=== PATIENT | male | born 1940 | race Caucasian/White ===

== ENCOUNTER → 2016-09-06 | Outpatient (CLI) | payer MEDICARE ==
[2016-09-06 12:39] LABS: BLOOD, URINE NEG (NEG); GLUCOSE,URINE NEG (NEG); HYALINE CAST, URINE 1 /lpf (RARE); KETONE, URINE NEG (NEG); MUCUS URINE FEW /lpf (OCC); NITRITE,URINE NEG (NEG); URINE COLOR YELLOW (YELLW/STRAW)
[2016-09-06 12:43] LABS: COMMENT (UR) CULT NOT INDICATED; CULTURE IF INDICATED CULT NOT INDICATED
[2016-09-06 12:46] LABS: AUTOMATED NEUTROPHIL # 5.7 TH/MM3 (1.8-7.7); BASOPHIL # 0.1 TH/MM3 (0-0.2); BASOPHIL % 1.2 % (0.0-2.0); EOSINOPHIL # 0.5 TH/MM3 (0-0.4); HEMATOCRIT 35.1 % (39.0-51.0); HEMO FLAGS DIFF FINAL; LYMPH % 15.9 % (9.0-44.0); LYMPHOCYTE # 1.3 TH/MM3 (1.0-4.8); MEAN CELL VOLUME 91.9 FL (80.0-100.0); MEAN CORPUSCULAR HEMOGLOBIN 31.4 PG (27.0-34.0); MEAN CORPUSCULAR HGB CONC 34.2 % (32.0-36.0); MONO % 8.2 % (0.0-8.0); NEUT % 68.7 % (16.0-70.0); PLATELET COUNT 282 TH/MM3 (150-450); RED BLOOD COUNT 3.82 MIL/MM3 (4.50-5.90); RED CELL DISTRIBUTION WIDTH 12.8 % (11.6-17.2); WHITE BLOOD COUNT 8.3 TH/MM3 (4.0-11.0)
[2016-09-06 13:08] LABS: ALT (GPT) 19 U/L (12-78); ANION GAP 10 MEQ/L (5-15); AST (GOT) 10 U/L (15-37); BICARBONATE 24.2 MEQ/L (21.0-32.0); BLOOD UREA NITROGEN 17 MG/DL (7-18); CHLORIDE 105 MEQ/L (98-107); GLUCOSE,FASTING 106 MG/DL (74-99); POTASSIUM 4.5 MEQ/L (3.5-5.1); SODIUM (NA) 139 MEQ/L (136-145)
[2016-09-06 13:34] LABS: ALKALINE PHOSPHATASE 75 U/L (45-117); GLOMERULAR FILTRATION RATE 30 ML/MIN (>89); HDL CHOLESTEROL 43.7 MG/DL (40.0-60.0); LDL CHOLESTEROL 26 MG/DL (0-99); TOTAL BILIRUBIN ADULT 0.3 MG/DL (0.2-1.0)
[2016-09-06 13:45] LABS: CREATINE KINASE 56 U/L (39-308)
== END ==
LOC: ELAB 11:12
PROVIDERS: ATTEND Internal Medicine Nephrology
DX: E78.5 Hyperlipidemia, unspecified (principal); N18.3 Chronic kidney disease, stage 3 (moderate); N25.81 Secondary hyperparathyroidism of renal origin
CPT/HCPCS: 36415; 80053; 80061; 81001; 82306; 82550; 82570; 82607; 83970; 84156; 84443; 85025

== ENCOUNTER → 2016-09-14 | Outpatient (CLI) | payer MEDICARE ==
[2016-09-14 12:56] LABS: AUTOMATED NEUTROPHIL # 5.6 TH/MM3 (1.8-7.7); BASOPHIL # 0.1 TH/MM3 (0-0.2); EOSINOPHIL # 0.4 TH/MM3 (0-0.4); EOSINOPHIL % 4.9 % (0.0-4.0); HEMO FLAGS DIFF FINAL; LYMPH % 15.9 % (9.0-44.0); LYMPHOCYTE # 1.3 TH/MM3 (1.0-4.8); MEAN CELL VOLUME 91.9 FL (80.0-100.0); MEAN CORPUSCULAR HEMOGLOBIN 31.1 PG (27.0-34.0); MEAN CORPUSCULAR HGB CONC 33.9 % (32.0-36.0); MONO % 8.8 % (0.0-8.0); NEUT % 69.4 % (16.0-70.0); PLATELET COUNT 312 TH/MM3 (150-450); RED BLOOD COUNT 3.81 MIL/MM3 (4.50-5.90); RED CELL DISTRIBUTION WIDTH 12.8 % (11.6-17.2); WHITE BLOOD COUNT 8.1 TH/MM3 (4.0-11.0)
[2016-09-14 13:51] LABS: FERRITIN 39 NG/ML (26-388); TRANSFERRIN IRON PROFILE 239 MG/DL (200-360)
== END ==
LOC: ELAB 10:46
DX: I73.9 Peripheral vascular disease, unspecified (principal)
CPT/HCPCS: 36415; 82607; 82728; 82746; 83540; 83550; 85025

== ENCOUNTER → 2016-11-30 | Outpatient (CLI) | payer MEDICARE | LOC: ELAB 10:18 | PROVIDERS: ATTEND Thoracic Surgery (Cardiothoracic Vascular Surgery) | DX: R94.4 Abnormal results of kidney function studies (principal) | CPT/HCPCS: 36415; 82565; 84520 ==

== ENCOUNTER → 2017-01-17 | Outpatient (CLI) | payer MEDICARE ==
[2017-01-17 12:08] LABS: BICARBONATE 28.5 MEQ/L (21.0-32.0); POTASSIUM 4.3 MEQ/L (3.5-5.1)
[2017-01-17 12:30] LABS: AUTOMATED NEUTROPHIL # 5.5 TH/MM3 (1.8-7.7); BASOPHIL # 0.1 TH/MM3 (0-0.2); BASOPHIL % 0.7 % (0.0-2.0); EOSINOPHIL # 0.4 TH/MM3 (0-0.4); EOSINOPHIL % 4.9 % (0.0-4.0); HEMATOCRIT 38.8 % (39.0-51.0); HEMO FLAGS DIFF FINAL; LYMPH % 18.3 % (9.0-44.0); LYMPHOCYTE # 1.5 TH/MM3 (1.0-4.8); MEAN CORPUSCULAR HEMOGLOBIN 30.9 PG (27.0-34.0); MEAN CORPUSCULAR HGB CONC 34.7 % (32.0-36.0); MONO % 8.7 % (0.0-8.0); NEUT % 67.4 % (16.0-70.0); PLATELET COUNT 328 TH/MM3 (150-450); RED BLOOD COUNT 4.36 MIL/MM3 (4.50-5.90); RED CELL DISTRIBUTION WIDTH 12.5 % (11.6-17.2); WHITE BLOOD COUNT 8.2 TH/MM3 (4.0-11.0)
== END ==
LOC: ELAB 10:44
PROVIDERS: ATTEND Internal Medicine Nephrology
DX: N18.3 Chronic kidney disease, stage 3 (moderate) (principal)
CPT/HCPCS: 36415; 80069; 85025

== ENCOUNTER → 2017-07-01 | Outpatient (CLI) | payer MEDICARE ==
[2017-07-01 12:20] LABS: AUTOMATED NEUTROPHIL # 5.8 TH/MM3 (1.8-7.7); BASOPHIL # 0.1 TH/MM3 (0-0.2); EOSINOPHIL # 0.6 TH/MM3 (0-0.4); EOSINOPHIL % 6.9 % (0.0-4.0); HEMATOCRIT 38.8 % (39.0-51.0); HEMO FLAGS DIFF FINAL; LYMPH % 19.3 % (9.0-44.0); LYMPHOCYTE # 1.7 TH/MM3 (1.0-4.8); MEAN CELL VOLUME 91.1 FL (80.0-100.0); MEAN CORPUSCULAR HEMOGLOBIN 30.5 PG (27.0-34.0); MEAN CORPUSCULAR HGB CONC 33.5 % (32.0-36.0); MONO % 7.2 % (0.0-8.0); NEUT % 65.6 % (16.0-70.0); PLATELET COUNT 323 TH/MM3 (150-450); RED BLOOD COUNT 4.26 MIL/MM3 (4.50-5.90); RED CELL DISTRIBUTION WIDTH 12.1 % (11.6-17.2); WHITE BLOOD COUNT 8.9 TH/MM3 (4.0-11.0)
[2017-07-01 12:48] LABS: BICARBONATE 25.8 MEQ/L (21.0-32.0); POTASSIUM 4.8 MEQ/L (3.5-5.1)
== END ==
LOC: ELAB 10:43
PROVIDERS: ATTEND Internal Medicine Nephrology
DX: N18.3 Chronic kidney disease, stage 3 (moderate) (principal); N25.81 Secondary hyperparathyroidism of renal origin; E55.9 Vitamin D deficiency, unspecified
CPT/HCPCS: 36415; 80069; 82306; 83970; 85025

== ENCOUNTER 2017-08-14 23:51 | Inpatient (IN) | payer MEDICARE ==
[~2017-08-14] VITALS: Ht 175.3 cm; Wt 80.9 kg
[2017-08-15] VITALS (7 sets, daily range): BP systolic 125–175; BP diastolic 64–79; PULSE 77–128; RESP 16–20; TEMP 97–101.5; O2SAT 94–97
[2017-08-15] MEDS ORDERED: SODIUM CHLOR 0.9% 1000 ML INJ 1,000 ML IV ONE ×2 (00:12)
[2017-08-15] MEDS ORDERED: SODIUM CHLOR 0.9% 1000 ML INJ 400 ML IV ONE (00:12)
[2017-08-15] MEDS ORDERED: ACETAMINOPHEN 325 MG TAB PO ONE (00:15)
--- NOTE | 2017-08-15 00:41 | PD ---
HPI Chief Complaint: Altered Mental Status Time Seen by Provider: 00:12 Travel History International Travel<30 days: No Contact w/Intl Traveler<30days: No Traveled to known affect area: No History of Present Illness HPI The patient is a 77-year-old male who presents to the emergency department via EMS for altered mental status and fever. The patient apparently was recently diagnosed with a bladder infection and was placed on Bactrim and imipramine. The patient had increasing confusion today with generalized weakness, felt to the floor, was unable to get up off of the floor according to the son. They do note the patient has a history of Alzheimer's disease, but has increasing confusion today. Upon arrival the patient is able follow some simple commands, but does not answer questions. He does appear confused, is a poor historian. History is obtained from son at bedside. PFSH Past Medical History Alzheimer's Disease: Yes Cancer: Yes (PROSTATE) Cardiac Catheterization: Yes (STENT) High Cholesterol: Yes Dementia: Yes Radiation Therapy: Yes Social History Alcohol Use: Yes (OCCASSIONAL BEER) Tobacco Use: No Substance Use: No Allergies-Medications (Allergen,Severity, Reaction): Coded Allergies: No Known Allergies (Unverified , 08/15/17) Reported Meds & Prescriptions Reported Meds & Active Scripts Active Reported Crestor (Rosuvastatin Calcium) 20 Mg Tab 20 Mg PO DAILY Calcitriol 0.25 Mcg Cap 0.25 Mcg PO DAILY Clopidogrel (Clopidogrel Bisulfate) 75 Mg Tab 75 Mg PO DAILY Imipramine HCL (Imipramine HCl) 10 Mg Tab 50 Mg PO HS Sulfamethoxazole-Trimethoprim 800-160 Mg Tab 1 Tab PO BID Citalopram (Citalopram Hydrobromide) 10 Mg Tab 10 Mg PO DAILY Irbesartan 75 Mg Tab 75 Mg PO DAILY Review of Systems ROS Limitations: Clinical Condition, Altered Mental Status Except as stated in HPI: all other systems reviewed are Neg General / Constitutional: Positive: Fever Neurologic: Positive: Change in Mentation Physical Exam Narrative GENERAL: Awake, eyes open, confused 77-year-old male who appears his stated age. SKIN: Focused skin assessment warm/dry. HEAD: Atraumatic. Normocephalic. EYES: Pupils equal and round. 3 mm bilateral reactive. ENT: No nasal bleeding or discharge. Dry mucous membranes. NECK: Trachea midline. No JVD. CARDIOVASCULAR: Regular, tachycardic with a heart rate in the 130s. RESPIRATORY: No accessory muscle use. Clear to auscultation. Breath sounds equal bilaterally. GASTROINTESTINAL: Abdomen soft, non-tender, nondistended. No rebound tenderness. Genitourinary: Uncircumcised phallus. MUSCULOSKELETAL: No obvious deformities. No clubbing. No cyanosis. No edema. NEUROLOGICAL: Awake, eyes open, will follow simple commands but is not oriented 5. PSYCHIATRIC: Appears confused. Data Data Last Documented VS Vital Signs Date Time Temp Pulse Resp B/P (MAP) Pulse Ox O2 Delivery O2 Flow Rate FiO2 08/15/17 00:28 (86) 08/15/17 00:27 101.5 128 16 96 Room Air Orders Orders Sepsis Workup Initiated (08/15/17 ) Electrocardiogram (08/15/17 00:12) Complete Blood Count With Diff (08/15/17 00:12) Comprehensive Metabolic Panel (08/15/17 00:12) Lactic Acid Sepsis Protocol (08/15/17 00:12) Magnesium (Mg) (08/15/17 00:12) Ckmb (Isoenzyme) Profile (08/15/17 00:12) Troponin I (08/15/17 00:12) Urinalysis - C+S If Indicated (08/15/17 00:12) Influenzae A/B Antigen (08/15/17 00:12) Blood Culture (08/15/17 00:12) Chest, Single Ap (08/15/17 00:12) Blood Glucose (08/15/17 00:12) Ecg Monitoring (08/15/17 00:12) Iv Access Insert/Monitor (08/15/17 00:12) Cath For Specimen (08/15/17 00:12) Oximetry (08/15/17 00:12) Oxygen Administration (08/15/17 00:12) Acetaminophen (Tylenol) (08/15/17 00:15) Sodium Chlor 0.9% 1000 Ml Inj (Ns 1000 M (08/15/17 00:12) Sodium Chlor 0.9% 1000 Ml Inj (Ns 1000 M (08/15/17 00:12) Sodium Chlor 0.9% 1000 Ml Inj (Ns 1000 M (08/15/17 00:12) Acetaminophen Supp (Tylenol Supp) (08/15/17 01:00) Piperacil-Tazo 4.5 Gm Premix (Zosyn 4.5 (08/15/17 01:30) Admit Order (Ed Use Only) (08/15/17 03:43) Labs Laboratory Tests Test 08/15/17 00:30 08/15/17 02:00 White Blood Count 16.6 TH/MM3 Red Blood Count 4.27 MIL/MM3 Hemoglobin 13.2 GM/DL Hematocrit 37.7 % Mean Corpuscular Volume 88.5 FL Mean Corpuscular Hemoglobin 31.0 PG Mean Corpuscular Hemoglobin Concent 35.0 % Red Cell Distribution Width 12.2 % Platelet Count 308 TH/MM3 Mean Platelet Volume 7.9 FL Neutrophils (%) (Auto) 89.2 % Lymphocytes (%) (Auto) 5.0 % Monocytes (%) (Auto) 4.3 % Eosinophils (%) (Auto) 1.1 % Basophils (%) (Auto) 0.4 % Neutrophils # (Auto) 14.8 TH/MM3 Lymphocytes # (Auto) 0.8 TH/MM3 Monocytes # (Auto) 0.7 TH/MM3 Eosinophils # (Auto) 0.2 TH/MM3 Basophils # (Auto) 0.1 TH/MM3 CBC Comment DIFF FINAL Differential Comment Blood Urea Nitrogen 23 MG/DL Creatinine 2.39 MG/DL Random Glucose 117 MG/DL Total Protein 7.8 GM/DL Albumin 3.6 GM/DL Calcium Level 8.9 MG/DL Magnesium Level 1.7 MG/DL Alkaline Phosphatase 92 U/L Aspartate Amino Transf (AST/SGOT) 17 U/L Alanine Aminotransferase (ALT/SGPT) 23 U/L Total Bilirubin 0.7 MG/DL Sodium Level 135 MEQ/L Potassium Level 4.4 MEQ/L Chloride Level 102 MEQ/L Carbon Dioxide Level 24.7 MEQ/L Anion Gap 8 MEQ/L Estimat Glomerular Filtration Rate 26 ML/MIN Lactic Acid Level 2.6 mmol/L Total Creatine Kinase 64 U/L Troponin I LESS THAN 0.02 NG/ML Urine Color YELLOW Urine Turbidity CLEAR Urine pH 5.5 Urine Specific [place] 1.014 Urine Protein TRACE mg/dL Urine Glucose (UA) NEG mg/dL Urine Ketones TRACE mg/dL Urine Occult Blood SMALL Urine Nitrite NEG Urine Bilirubin NEG Urine Urobilinogen LESS THAN 2.0 MG/DL Urine Leukocyte Esterase NEG Urine RBC 6 /hpf Urine WBC 1 /hpf Urine Squamous Epithelial Cells <1 /hpf Urine Amorphous Sediment RARE Urine Mucus FEW /lpf Microscopic Urinalysis Comment CATH-CULT NOT IND MDM Medical Decision Making Medical Screen Exam Complete: Yes Emergency Medical Condition: Yes Medical Record Reviewed: Yes Interpretation(s) EKG reveals sinus tachycardia with a heart rate of 129. Q waves noted in lead 3 and aVF. Last Impressions Chest X-Ray 08/15/17 0012 Signed Impressions: Service Date/Time: August 00:18 - CONCLUSION: No acute disease. Juni Jaime MD Date/Time Source Procedure Growth Status 08/15/17 00:30 Blood Peripheral Aerobic Blood Culture Pending Received 08/15/17 00:30 Blood Peripheral Anaerobic Blood Culture Pending Received 08/15/17 00:25 Blood Peripheral Aerobic Blood Culture Pending Received 08/15/17 00:25 Blood Peripheral Anaerobic Blood Culture Pending Received 08/15/17 01:40 Nasal Aspirate Influenza Types A,B Antigen (LEN) - Final NEGATIVE FOR FLU A AND B ANTIGEN.... Complete Laboratory Tests Test 08/15/17 00:30 08/15/17 02:00 White Blood Count 16.6 TH/MM3 Red Blood Count 4.27 MIL/MM3 Hemoglobin 13.2 GM/DL Hematocrit 37.7 % Mean Corpuscular Volume 88.5 FL Mean Corpuscular Hemoglobin 31.0 PG Mean Corpuscular Hemoglobin Concent 35.0 % Red Cell Distribution Width 12.2 % Platelet Count 308 TH/MM3 Mean Platelet Volume 7.9 FL Neutrophils (%) (Auto) 89.2 % Lymphocytes (%) (Auto) 5.0 % Monocytes (%) (Auto) 4.3 % Eosinophils (%) (Auto) 1.1 % Basophils (%) (Auto) 0.4 % Neutrophils # (Auto) 14.8 TH/MM3 Lymphocytes # (Auto) 0.8 TH/MM3 Monocytes # (Auto) 0.7 TH/MM3 Eosinophils # (Auto) 0.2 TH/MM3 Basophils # (Auto) 0.1 TH/MM3 CBC Comment DIFF FINAL Differential Comment Blood Urea Nitrogen 23 MG/DL Creatinine 2.39 MG/DL Random Glucose 117 MG/DL Total Protein 7.8 GM/DL Albumin 3.6 GM/DL Calcium Level 8.9 MG/DL Magnesium Level 1.7 MG/DL Alkaline Phosphatase 92 U/L Aspartate Amino Transf (AST/SGOT) 17 U/L Alanine Aminotransferase (ALT/SGPT) 23 U/L Total Bilirubin 0.7 MG/DL Sodium Level 135 MEQ/L Potassium Level 4.4 MEQ/L Chloride Level 102 MEQ/L Carbon Dioxide Level 24.7 MEQ/L Anion Gap 8 MEQ/L Estimat Glomerular Filtration Rate 26 ML/MIN Lactic Acid Level 2.6 mmol/L Total Creatine Kinase 64 U/L Troponin I LESS THAN 0.02 NG/ML Urine Color YELLOW Urine Turbidity CLEAR Urine pH 5.5 Urine Specific [place] 1.014 Urine Protein TRACE mg/dL Urine Glucose (UA) NEG mg/dL Urine Ketones TRACE mg/dL Urine Occult Blood SMALL Urine Nitrite NEG Urine Bilirubin NEG Urine Urobilinogen LESS THAN 2.0 MG/DL Urine Leukocyte Esterase NEG Urine RBC 6 /hpf Urine WBC 1 /hpf Urine Squamous Epithelial Cells <1 /hpf Urine Amorphous Sediment RARE Urine Mucus FEW /lpf Microscopic Urinalysis Comment CATH-CULT NOT IND Differential Diagnosis Differential diagnosis includes sepsis, delirium, UTI, pneumonia, influenza, hyponatremia, dehydration, acute renal failure. Narrative Course IV was established, labs are drawn and sent, and the patient was placed on cardiac telemetry monitoring and continuous pulse oximetry monitoring. EKG was ordered and interpreted. Chest x-ray was obtained. Catheter UA was sent to lab. Patient received IV fluids. Chest x-rays unremarkable. UA is unremarkable, however, patient has been taking Bactrim. Influenza screen was negative. Patient does have a fever greater than 101 with elevated white count greater than 16 consistent with SIRS. The patient was covered with Zosyn for possible UTI. The patient does have delirium, most likely secondary to underlying infection and/or the medication and remained. The patient will be admitted to the on-call medical service, while blood cultures are pending. Sepsis Criteria SIRS Criteria (2 or more): Temp > 100.9 or < 96.8, WBC > 77732, < 4000 or > 10 % bands Criteria Outcome: Meets SIRS criteria Physician Communication Physician Communication The on-call medical service was paged for admission. I discussed the patient with Dr. Dwyer who agrees with admission. Diagnosis Primary Impression: Delirium Additional Impressions: SIRS (systemic inflammatory response syndrome) Dehydration Acute kidney injury Admitting Information Admitting Physician Requests: Admit Condition: Stable Salbador Fisher MD Aug 15, 2017 00:41
[2017-08-15] MEDS ORDERED: IRBE75TA5 PO (00:44)
[2017-08-15 00:46] LABS: AUTOMATED NEUTROPHIL # 14.8 TH/MM3 (1.8-7.7); BASOPHIL # 0.1 TH/MM3 (0-0.2); BASOPHIL % 0.4 % (0.0-2.0); EOSINOPHIL # 0.2 TH/MM3 (0-0.4); EOSINOPHIL % 1.1 % (0.0-4.0); HEMATOCRIT 37.7 % (39.0-51.0); HEMOGLOBIN 13.2 GM/DL (13.0-17.0); LYMPHOCYTE # 0.8 TH/MM3 (1.0-4.8); MEAN CELL VOLUME 88.5 FL (80.0-100.0); MEAN PLATELET VOLUME 7.9 FL (7.0-11.0); MONO % 4.3 % (0.0-8.0); MONOCYTE # 0.7 TH/MM3 (0-0.9); NEUT % 89.2 % (16.0-70.0); PLATELET COUNT 308 TH/MM3 (150-450); RED BLOOD COUNT 4.27 MIL/MM3 (4.50-5.90); RED CELL DISTRIBUTION WIDTH 12.2 % (11.6-17.2); WHITE BLOOD COUNT 16.6 TH/MM3 (4.0-11.0)
[2017-08-15] MEDS ORDERED: IMIP10 PO (00:47)
[2017-08-15] MEDS ORDERED: CALC0.25 PO (00:47)
[2017-08-15] MEDS ORDERED: CLOP75TA PO (00:47)
[2017-08-15] MEDS ORDERED: CITA10TA4 PO (00:47)
[2017-08-15] MEDS ORDERED: SULF1TAB23 PO (00:47)
[2017-08-15] MEDS ORDERED: ROSU20 PO (00:48)
--- NOTE | 2017-08-15 00:57 | RADRPT ---
EXAM DATE/TIME: 08/15/2017 00:18 [place] COMPARISON: No previous studies available for comparison. INDICATIONS : Fever. MEDICAL HISTORY : Dementia SURGICAL HISTORY : None. ENCOUNTER: Initial ACUITY: 1 day PAIN SCORE: Non-responsive. LOCATION: Bilateral chest FINDINGS: A single view of the chest demonstrates the lungs to be symmetrically aerated without evidence of mas s, infiltrate or effusion. The cardiomediastinal contours are unremarkable. Osseous structures are intact. CONCLUSION: No acute disease. Juni Jaime MD on August 15, 2017 at 0:54 Board Certified Radiologist. This report was verified electronically.
[2017-08-15] MEDS ORDERED: ACETAMINOPHEN 650 MG SUPP RECTAL ONE (01:00)
[2017-08-15 01:02] LABS: ALBUMIN 3.6 GM/DL (3.4-5.0); ALT (GPT) 23 U/L (12-78); AST (GOT) 17 U/L (15-37); BICARBONATE 24.7 MEQ/L (21.0-32.0); BLOOD UREA NITROGEN 23 MG/DL (7-18); CALCIUM 8.9 MG/DL (8.5-10.1); CHLORIDE 102 MEQ/L (98-107); CREATININE 2.39 MG/DL (0.60-1.30); GLOMERULAR FILTRATION RATE 26 ML/MIN (>89); GLUCOSE,RANDOM 117 MG/DL (74-106); MAGNESIUM 1.7 MG/DL (1.5-2.5); SODIUM (NA) 135 MEQ/L (136-145)
[2017-08-15 01:05] LABS: LACTIC ACID SEPSIS PROTOCOL 2.6 mmol/L (0.4-2.0)
[2017-08-15 01:06] LABS: ALKALINE PHOSPHATASE 92 U/L (45-117); TOTAL BILIRUBIN ADULT 0.7 MG/DL (0.2-1.0); TOTAL PROTEIN 7.8 GM/DL (6.4-8.2); TROPONIN I LESS THAN 0.02 NG/ML (0.02-0.05)
[2017-08-15] MEDS ORDERED: PIPERACIL-TAZO 4.5 GM PREMIX 100 ML IV ONE (01:30)
[2017-08-15 02:15] LABS: AMORPHOUS SEDIMENT, URINE RARE; BILIRUBIN, URINE NEG (NEG); BLOOD, URINE SMALL (NEG); GLUCOSE,URINE NEG (NEG); KETONE, URINE TRACE mg/dL (NEG); MUCUS URINE FEW /lpf (OCC); NITRITE,URINE NEG (NEG); PH, URINE 5.5 (5.0-8.5); SQUAMOUS EPITHELIAL CELL URINE <1 /hpf (0-5); URINE COLOR YELLOW (YELLW/STRAW); URINE LEUKOCYTE ESTERASE NEG (NEG)
[2017-08-15] MEDS ORDERED: NALOXONE HCL 0.4 MG/ML AMP IV PUSH PRN (03:45)
[2017-08-15] MEDS ORDERED: LACTULOSE SYRUP 20 GM/30 ML CUP PO PRN (03:45)
[2017-08-15] MEDS ORDERED: SODIUM CHLORIDE 0.9% FLUSH 10 ML FLUSH IV FLUSH PRN (03:45)
[2017-08-15] MEDS ORDERED: MAGNESIUM HYDROXIDE SUSP 30 ML CUP PO PRN (03:45)
[2017-08-15] MEDS ORDERED: SENNOSIDES 8.6 MG TAB PO PRN (03:45)
[2017-08-15] MEDS ORDERED: BISACODYL 10 MG SUPP RECTAL PRN (03:45)
[2017-08-15] MEDS ORDERED: ONDANSETRON HCL 4 MG/2 ML VIAL IVP PRN (03:45)
[2017-08-15] MEDS ORDERED: ACETAMINOPHEN 325 MG TAB PO PRN (03:45)
--- NOTE | 2017-08-15 04:36 | HHI.HP ---
[facility] Service [facility] Primary Care Physician Non-Staff Admission Diagnosis delirium, SIRS, leukocytosis, febrile illness, RAFA Diagnoses: Travel History International Travel<30 Days: No Contact w/Intl Traveler <30 Da: No Traveled to Known Affected Are: No History of Present Illness 77-year-old male with a past medical history significant for dementia, chronic kidney disease, peripheral vascular disease, hypertension, hyperlipidemia and a history of prostate cancer presents to the emergency department with a one-day history of worsening disorientation and fever. The patient's reports that although the patient is demented at baseline he has become increasingly disoriented and confused. She reports that he no longer is making sense. She states he has been shaky and unsteady on his feet. 5 days ago the patient was diagnosed with a urinary tract infection by urologist who started him on Bactrim. He has been compliant with the medication. Vital signs: Temperature 101.5, pulse 128, respirations 16, BP 125/67, pulse ox 96% on room air. Review of Systems ROS Limitations: Clinical Condition Patient denies any pain, shortness of breath, nausea/vomiting, diarrhea Past Family Social History Past Medical History Dementia Chronic kidney disease Peripheral vascular disease Hypertension Hyperlipidemia History of prostate cancer Past Surgical History Prostate radiation 20 years ago Right leg stent Bilateral cataract surgery Reported Medications Reported Meds & Active Scripts Active Reported Crestor (Rosuvastatin Calcium) 20 Mg Tab 20 Mg PO DAILY Calcitriol 0.25 Mcg Cap 0.25 Mcg PO DAILY Clopidogrel (Clopidogrel Bisulfate) 75 Mg Tab 75 Mg PO DAILY Imipramine HCL (Imipramine HCl) 10 Mg Tab 50 Mg PO HS Sulfamethoxazole-Trimethoprim 800-160 Mg Tab 1 Tab PO BID Citalopram (Citalopram Hydrobromide) 10 Mg Tab 10 Mg PO DAILY Irbesartan 75 Mg Tab 75 Mg PO DAILY Allergies: Coded Allergies: No Known Allergies (Unverified , 08/15/17) Family History Father with diabetes mellitus Social History Quit tobacco 20 years ago. Occasional alcohol. Denies illicit drugs. Physical Exam Vital Signs Vital Signs Date Time Temp Pulse Resp B/P (MAP) Pulse Ox O2 Delivery O2 Flow Rate FiO2 08/15/17 00:28 (86) 08/15/17 00:27 101.5 128 16 125/67 (86) 96 Room Air 08/15/17 00:17 96 Room Air Physical Exam GENERAL: Pleasant, male sitting up in bed SKIN: No rashes, ecchymoses or lesions. Cool and dry. HEAD: Atraumatic. Normocephalic. No temporal or scalp tenderness. EYES: Pupils equal round and reactive. Extraocular motions intact. No scleral icterus. No injection or drainage. ENT: Nose without bleeding, purulent drainage or septal hematoma. Throat without erythema, tonsillar hypertrophy or exudate. Uvula midline. Airway patent. NECK: Trachea midline. No JVD or lymphadenopathy. Supple, nontender, no meningeal signs. CARDIOVASCULAR: Regular rate and rhythm without murmurs, gallops, or rubs. RESPIRATORY: Clear to auscultation. Breath sounds equal bilaterally. No wheezes , rales, or rhonchi. GASTROINTESTINAL: Abdomen soft, non-tender, nondistended. No hepato-splenomegaly , or palpable masses. No guarding. MUSCULOSKELETAL: Extremities without clubbing, cyanosis, or edema. No joint tenderness, effusion, or edema noted. No calf tenderness. NEUROLOGICAL: Awake and alert. Cranial nerves II through XII intact. Motor and sensory grossly within normal limits. Normal speech. Alert and oriented 0. Patient unable to state his full name, location or the year. Laboratory Laboratory Tests Test 08/15/17 00:30 08/15/17 02:00 White Blood Count 16.6 Red Blood Count 4.27 Hemoglobin 13.2 Hematocrit 37.7 Mean Corpuscular Volume 88.5 Mean Corpuscular Hemoglobin 31.0 Mean Corpuscular Hemoglobin Concent 35.0 Red Cell Distribution Width 12.2 Platelet Count 308 Mean Platelet Volume 7.9 Neutrophils (%) (Auto) 89.2 Lymphocytes (%) (Auto) 5.0 Monocytes (%) (Auto) 4.3 Eosinophils (%) (Auto) 1.1 Basophils (%) (Auto) 0.4 Neutrophils # (Auto) 14.8 Lymphocytes # (Auto) 0.8 Monocytes # (Auto) 0.7 Eosinophils # (Auto) 0.2 Basophils # (Auto) 0.1 CBC Comment DIFF FINAL Differential Comment Blood Urea Nitrogen 23 Creatinine 2.39 Random Glucose 117 Total Protein 7.8 Albumin 3.6 Calcium Level 8.9 Magnesium Level 1.7 Alkaline Phosphatase 92 Aspartate Amino Transf (AST/SGOT) 17 Alanine Aminotransferase (ALT/SGPT) 23 Total Bilirubin 0.7 Sodium Level 135 Potassium Level 4.4 Chloride Level 102 Carbon Dioxide Level 24.7 Anion Gap 8 Estimat Glomerular Filtration Rate 26 Lactic Acid Level 2.6 Total Creatine Kinase 64 Troponin I LESS THAN 0.02 Urine Color YELLOW Urine Turbidity CLEAR Urine pH 5.5 Urine Specific [place] 1.014 Urine Protein TRACE Urine Glucose (UA) NEG Urine Ketones TRACE Urine Occult Blood SMALL Urine Nitrite NEG Urine Bilirubin NEG Urine Urobilinogen LESS THAN 2.0 Urine Leukocyte Esterase NEG Urine RBC 6 Urine WBC 1 Urine Squamous Epithelial Cells <1 Urine Amorphous Sediment RARE Urine Mucus FEW Microscopic Urinalysis Comment CATH-CULT NOT IND Date/Time Source Procedure Growth Status 08/15/17 00:30 Blood Peripheral Aerobic Blood Culture Pending Received 08/15/17 00:30 Blood Peripheral Anaerobic Blood Culture Pending Received 08/15/17 01:40 Nasal Aspirate Influenza Types A,B Antigen (LEN) - Final NEGATIVE FOR FLU A AND B ANTIGEN.... Complete 08/15/17 02:00 Urine Random Urine Urine Culture Pending Received Result Diagram: 08/15/172908/15/17 003 Caprini VTE Risk Assessment Caprini VTE Risk Assessment: Mod/High Risk (score >= 2) Caprini Risk Assessment Model Point Value = 1 Point Value = 2 Point Value = 3 Point Value = 5 Age 41-60 Minor surgery BMI > 25 kg/m2 Swollen legs Varicose veins or History of unexplained or recurrent spontaneous Oral contraceptives or hormone replacement Sepsis (< 1 month) Serious lung disease, including pneumonia (< 1 month) Abnormal pulmonary function Acute myocardial infarction Congestive heart failure (< 1 month) History of inflammatory bowel disease Medical patient at bed rest Age 61-74 Arthroscopic surgery Major open surgery (> 45 min) Laparoscopic surgery (> 45 min) Malignancy Confined to bed (> 72 hours) Immobilizing plaster cast Central venous access Age >= 75 History of VTE Family history of VTE Factor V Leiden Prothrombin [id number] Lupus anticoagulant Anticardiolipin antibodies Elevated serum homocysteine Heparin-induced thrombocytopenia Other congenital or acquired thrombophilia Stroke (< 1 month) Elective arthroplasty Hip, pelvis, or leg fracture Acute spinal cord injury (< 1 month) Prophylaxis Regimen Total Risk Factor Score Risk Level Prophylaxis Regimen 0-1 Low Early ambulation 2 Moderate Order ONE of the following: *Sequential Compression Device (SCD) *Heparin 5000 units SQ BID 3-4 Higher Order ONE of the following medications: *Heparin 5000 units SQ TID *Enoxaparin/Lovenox 40 mg SQ daily (WT < 150 kg, CrCl > 30 mL/min) *Enoxaparin/Lovenox 30 mg SQ daily (WT < 150 kg, CrCl > 10-29 mL/min) *Enoxaparin/Lovenox 30 mg SQ BID (WT < 150 kg, CrCl > 30 mL/min) AND/OR *Sequential Compression Device (SCD) 5 or more Highest Order ONE of the following medications: *Heparin 5000 units SQ TID (Preferred with Epidurals) *Enoxaparin/Lovenox 40 mg SQ daily (WT < 150 kg, CrCl > 30 mL/min) *Enoxaparin/Lovenox 30 mg SQ daily (WT < 150 kg, CrCl > 10-29 mL/min) *Enoxaparin/Lovenox 30 mg SQ BID (WT < 150 kg, CrCl > 30 mL/min) AND *Sequential Compression Device (SCD) Assessment and Plan Assessment and Plan Assessment/plan: 1. Severe sepsis Patient tachycardic, febrile, with leukocytosis and elevated lactic acid Patient recently diagnosed with urinary tract infection, treated with Bactrim 5 days. Suspect this may be the source although UA without signs of infection. Urine culture pending Chest x-ray with no acute disease, personally reviewed Blood cultures pending Zosyn IV fluid hydration Repeat lactic acid pending Monitor for signs of shock 2. Acute on chronic renal insufficiency Creatinine 2.39, baseline 1.8 Likely secondary to decreased by mouth intake IV fluid hydration Monitor renal function Patient's industrial machine system technician is Dr. Clement 3. Peripheral vascular disease/hypertension/hyperlipidemia Continue home medications 4. Dementia/depression Continue home medications FEN Heart healthy diet Electrolytes: monitor and replete prn NS at 100 cc/hr Heparin Physician Certification 2 Midnight Certification Type: Admission for Inpatient Services Order for Inpatient Services The services are ordered in accordance with Medicare regulations or non- Medicare payer requirements, as applicable. In the case of services not specified as inpatient-only, they are appropriately provided as inpatient services in accordance with the 2-midnight benchmark. Estimated LOS (days): 2 2 days is the estimated time the patient will need to remain in the hospital, assuming treatment plan goals are met and no additional complications. Post-Hospital Plan: Not yet determined Doris Dwyer MD Aug 15, 2017 04:35
[2017-08-15] MEDS: SODIUM CHLOR 0.9% 1000 ML INJ 1,000 ML IV SCH ×3 (04:54→21:03)
[2017-08-15] MEDS: HEPARIN SODIUM - SQ 10,000 UNITS/ML VIAL SQ SCH ×3 (05:05→21:03)
--- NOTE | 2017-08-15 08:11 | EKG ---
Date Performed: 08/15/2017 Time Performed: 00:29:51 PTAGE: 77 years EKG: SINUS TACHYCARDIA INFERIOR MYOCARDIAL INFARCTION ABNORMAL ECG NO PREVIOUS TRACING DOCTOR: Shaggy Gilbert Interpretating Date/Time 08/15/2017 08:10:32
[2017-08-15] MEDS: DOCUSATE SODIUM 50 MG/SENNA 8.6 MG TAB PO SCH ×2 (08:24→21:02)
[2017-08-15] MEDS: PIPERACIL-TAZO 2.25 GM PREMIX 50 ML IV SCH ×3 (08:24→21:02)
[2017-08-15] MEDS: ATORVASTATIN 40 MG TAB PO SCH (08:24)
[2017-08-15] MEDS: CLOPIDOGREL 75 MG TAB PO SCH (08:24)
[2017-08-15] MEDS: LOSARTAN 25 MG TAB PO SCH (08:25)
[2017-08-15] MEDS: CITALOPRAM HYDROBROMIDE 20 MG TAB PO SCH (08:25)
[2017-08-15] MEDS: SODIUM CHLORIDE 0.9% FLUSH 10 ML FLUSH IV FLUSH SCH ×2 (08:50→21:00)
[2017-08-15 09:09] LABS: BICARBONATE 23.3 MEQ/L (21.0-32.0); CALCIUM 8.2 MG/DL (8.5-10.1); CREATININE 2.26 MG/DL (0.60-1.30)
--- NOTE | 2017-08-15 11:53 | HHI.PR ---
Subjective Remarks Follow-up sepsis 08/15/17-patient seen and examined, Tmax 101.5, currently afebrile. Per patient 's son's, he is at his baseline in term of mentation Objective Vitals Vital Signs Date Time Temp Pulse Resp B/P (MAP) Pulse Ox O2 Delivery O2 Flow Rate FiO2 08/15/17 08:00 100 08/15/17 08:00 97.0 77 18 129/64 (85) 97 08/15/17 05:16 98.5 90 20 126/70 (88) 94 08/15/17 04:55 08/15/17 00:28 (86) 08/15/17 00:27 101.5 128 16 125/67 (86) 96 Room Air 08/15/17 00:17 96 Room Air Result Diagram: 08/15/17 0030 08/15/17 0815 Imaging Last Impressions Chest X-Ray 08/15/17 0012 Signed Impressions: Service Date/Time: August 00:18 - CONCLUSION: No acute disease. Juni Jaime MD Objective Remarks GENERAL: NAD SKIN: Warm and dry. HEAD: Normocephalic. EYES: No scleral icterus. No injection or drainage. NECK: Supple, trachea midline. No JVD or lymphadenopathy. CARDIOVASCULAR: Regular rate and rhythm without murmurs, gallops, or rubs. RESPIRATORY: Breath sounds equal bilaterally. No accessory muscle use. GASTROINTESTINAL: Abdomen soft, non-tender, nondistended. MUSCULOSKELETAL: No cyanosis, or edema. BACK: Nontender without obvious deformity. No CVA tenderness. A/P Problem List: (1) SIRS (systemic inflammatory response syndrome) ICD Code: R65.10 - Systemic inflammatory response syndrome (SIRS) of non- infectious origin without acute organ dysfunction Status: Acute (2) Acute kidney injury ICD Code: N17.9 - Acute kidney failure, unspecified Status: Acute Assessment and Plan 77-year-old man with 1. Severe sepsis Patient tachycardic, febrile, with leukocytosis and elevated lactic acid UA without signs of infection. Chest x-ray with no acute disease Blood cultures pending Add vancomycin and continue Zosyn IV fluid hydration 2. Acute on chronic renal insufficiency IV fluid hydration Monitor renal function Patient's nursing program coordinator is Dr. Clement 3. Peripheral vascular disease/hypertension/hyperlipidemia Continue home medications 4. Dementia/depression Continue home medications Yared Luna MD Aug 15, 2017 11:53
[2017-08-15] MEDS ORDERED: Vancomycin Consult Pharmacy 1 EA OTHER SCH (12:00)
[2017-08-15] MEDS ORDERED: VANCOMYCIN INJ 1,000 MG in SODIUM CHLOR 0.9% 250 ML INJ 250 ML IV SCH (12:00)
[2017-08-15] MEDS ORDERED: VANCOMYCIN INJ 1,750 MG in SODIUM CHLORID 0.9% 500 ML INJ 500 ML IV ONE (14:00)
[2017-08-15] MEDS ORDERED: IMIPRAMINE HCL 25 MG TAB PO SCH (21:00)
[2017-08-16] VITALS: BP 152/76; PULSE 87; RESP 18; TEMP 98.7; O2SAT 96
[2017-08-16] MEDS: PIPERACIL-TAZO 2.25 GM PREMIX 50 ML IV SCH ×2 (01:51→08:00)
[2017-08-16 04:00] VITALS: BP 170/81; PULSE 83; RESP 18; TEMP 97.2; O2SAT 98
[2017-08-16] MEDS: HEPARIN SODIUM - SQ 10,000 UNITS/ML VIAL SQ SCH (05:19)
[2017-08-16] MEDS: SODIUM CHLOR 0.9% 1000 ML INJ 1,000 ML IV SCH (05:45)
[2017-08-16 05:57] VITALS: BP 158/74
[2017-08-16 06:21] LABS: AUTOMATED NEUTROPHIL # 5.9 TH/MM3 (1.8-7.7); BASOPHIL # 0.1 TH/MM3 (0-0.2); EOSINOPHIL # 0.7 TH/MM3 (0-0.4); EOSINOPHIL % 7.3 % (0.0-4.0); HEMATOCRIT 34.9 % (39.0-51.0); HEMOGLOBIN 12.1 GM/DL (13.0-17.0); LYMPH % 16.8 % (9.0-44.0); LYMPHOCYTE # 1.5 TH/MM3 (1.0-4.8); MEAN CORPUSCULAR HEMOGLOBIN 30.8 PG (27.0-34.0); MEAN CORPUSCULAR HGB CONC 34.6 % (32.0-36.0); MEAN PLATELET VOLUME 7.6 FL (7.0-11.0); MONO % 8.8 % (0.0-8.0); MONOCYTE # 0.8 TH/MM3 (0-0.9); NEUT % 66.1 % (16.0-70.0); PLATELET COUNT 254 TH/MM3 (150-450); RED BLOOD COUNT 3.92 MIL/MM3 (4.50-5.90); RED CELL DISTRIBUTION WIDTH 12.3 % (11.6-17.2); WHITE BLOOD COUNT 8.9 TH/MM3 (4.0-11.0)
[2017-08-16 06:46] LABS: BICARBONATE 20.5 MEQ/L (21.0-32.0); CALCIUM 8.1 MG/DL (8.5-10.1); CREATININE 2.03 MG/DL (0.60-1.30)
[2017-08-16] MEDS: SODIUM CHLORIDE 0.9% FLUSH 10 ML FLUSH IV FLUSH SCH (08:51)
[2017-08-16] MEDS: DOCUSATE SODIUM 50 MG/SENNA 8.6 MG TAB PO SCH (08:59)
[2017-08-16] MEDS: ATORVASTATIN 40 MG TAB PO SCH (08:59)
[2017-08-16] MEDS: CLOPIDOGREL 75 MG TAB PO SCH (08:59)
[2017-08-16] MEDS: CITALOPRAM HYDROBROMIDE 20 MG TAB PO SCH (08:59)
[2017-08-16] MEDS: LOSARTAN 25 MG TAB PO SCH (08:59)
[2017-08-16 09:17] VITALS: BP 173/83; PULSE 95; RESP 20; TEMP 98.8; O2SAT 93
--- NOTE | 2017-08-16 09:22 | HHI.PR ---
Subjective Remarks Follow-up sepsis 08/15/17-patient seen and examined, Tmax 101.5, currently afebrile. Per patient 's son's, he is at his baseline in term of mentation 08/16/17-patient seen and examined, currently afebrile and per her son's report mentation is back to his baseline. No acute event overnight. Taking by mouth without any competition nausea and vomiting. Preliminary blood culture negative. Objective Vitals Vital Signs Date Time Temp Pulse Resp B/P (MAP) Pulse Ox O2 Delivery O2 Flow Rate FiO2 08/16/17 09:17 98.8 95 20 173/83 (113) 93 08/16/17 05:57 158/74 (102) 08/16/17 04:00 97.2 83 18 170/81 (110) 98 08/16/17 00:00 98.7 87 18 152/76 (101) 96 08/15/17 20:50 Nasal Cannula 2.00 08/15/17 20:00 99.0 93 18 154/78 (103) 96 08/15/17 18:36 97 08/15/17 16:00 98.6 95 18 159/72 (101) 95 08/15/17 12:00 97.9 98 18 175/79 (111) 97 I/O 08/15/17 08/15/17 08/15/17 08/16/17 08/16/17 08/16/17 07:00 15:00 23:00 07:00 15:00 23:00 Intake Total 1617.5 ml 1100 ml Output Total 450 ml Balance 1617.5 ml 650 ml Intake IV Total 1617.5 ml 1100 ml Output Urine Total 450 ml # Voids 1 # Bowel Movements 1 Result Diagram: 08/16/17 0515 08/16/17 0515 Imaging Last Impressions Chest X-Ray 08/15/17 0012 Signed Impressions: Service Date/Time: August 00:18 - CONCLUSION: No acute disease. Juni Jaime MD Objective Remarks GENERAL: NAD SKIN: Warm and dry. HEAD: Normocephalic. EYES: No scleral icterus. No injection or drainage. NECK: Supple, trachea midline. No JVD or lymphadenopathy. CARDIOVASCULAR: Regular rate and rhythm without murmurs, gallops, or rubs. RESPIRATORY: Breath sounds equal bilaterally. No accessory muscle use. GASTROINTESTINAL: Abdomen soft, non-tender, nondistended. MUSCULOSKELETAL: No cyanosis, or edema. BACK: Nontender without obvious deformity. No CVA tenderness. Procedures none A/P Problem List: (1) SIRS (systemic inflammatory response syndrome) ICD Code: R65.10 - Systemic inflammatory response syndrome (SIRS) of non- infectious origin without acute organ dysfunction Status: Acute (2) Acute kidney injury ICD Code: N17.9 - Acute kidney failure, unspecified Status: Acute Assessment and Plan 77-year-old man with 1. Severe sepsis-resolved UA without signs of infection. Chest x-ray with no acute disease Blood cultures pending Discontinue vancomycin and Zosyn IV fluid hydration 2. Acute on chronic renal insufficiency-improving IV fluid hydration Monitor renal function Patient's dental hygiene instructor is Dr. Clement 3. Peripheral vascular disease/hypertension/hyperlipidemia Continue home medications 4. Dementia/depression Continue home medications Discharge Planning Discharge patient to home Condition on discharge: Improved Regular Diet as tolerated Ad Diamond activity Rx written:none Follow-up with primary care physician in one week Yared Luna MD Aug 16, 2017 09:22
[2017-08-16] MEDS ORDERED: GETGO ROLLING W1 MI1 (10:26)
== END 2017-08-16 10:23 | disposition home or self-care (01) | DRG 872 ==
LOC: NEPE 23:51 → NEDA 08-15 03:44 → N05B 08-15 04:55
PROVIDERS: ADMIT Hospitalist; ATTEND Hospitalist
DX: A41.9 Sepsis, unspecified organism (principal); N17.9 Acute kidney failure, unspecified; G30.9 Alzheimer's disease, unspecified; E86.0 Dehydration; F02.80 Dementia in other diseases classified elsewhere, unspecified severity, without behavioral disturbance, psychotic disturbance, mood disturbance, and anxiety; R65.20 Severe sepsis without septic shock; I73.9 Peripheral vascular disease, unspecified; E78.5 Hyperlipidemia, unspecified; R00.0 Tachycardia, unspecified; R26.81 Unsteadiness on feet; I12.9 Hypertensive chronic kidney disease with stage 1 through stage 4 chronic kidney disease, or unspecified chronic kidney disease; N18.9 Chronic kidney disease, unspecified; F32.9 Major depressive disorder, single episode, unspecified; Z85.46 Personal history of malignant neoplasm of prostate; Z87.891 Personal history of nicotine dependence; Z95.5 Presence of coronary angioplasty implant and graft; Z92.3 Personal history of irradiation
CPT/HCPCS: 71045; 80048; 80053; 81001; 82550; 83605; 83735; 84484; 85025; 87040; 87086; 87804; 93005; 96361; 96365; J1644; J2543; J3370; J7030; J7040; P9612

== ENCOUNTER → 2017-09-16 | Outpatient (CLI) | payer MEDICARE ==
[~2017-09-16] MED LIST: CALC0.25 PO; CITA10TA4 PO; CLOP75TA PO; GETGO ROLLING W1 MI1; IMIP10 PO; IRBE75TA5 PO; ROSU20 PO; SULF1TAB23 PO
[2017-09-16 12:13] LABS: BASOPHIL # 0.1 TH/MM3 (0-0.2); BASOPHIL % 1.1 % (0.0-2.0); EOSINOPHIL # 0.5 TH/MM3 (0-0.4); EOSINOPHIL % 5.9 % (0.0-4.0); HEMATOCRIT 39.5 % (39.0-51.0); HEMOGLOBIN 13.6 GM/DL (13.0-17.0); LYMPHOCYTE # 1.8 TH/MM3 (1.0-4.8); MEAN CELL VOLUME 88.2 FL (80.0-100.0); MEAN CORPUSCULAR HEMOGLOBIN 30.4 PG (27.0-34.0); MEAN CORPUSCULAR HGB CONC 34.4 % (32.0-36.0); MEAN PLATELET VOLUME 7.2 FL (7.0-11.0); MONO % 7.9 % (0.0-8.0); MONOCYTE # 0.7 TH/MM3 (0-0.9); NEUT % 65.1 % (16.0-70.0); PLATELET COUNT 342 TH/MM3 (150-450); RED BLOOD COUNT 4.47 MIL/MM3 (4.50-5.90); RED CELL DISTRIBUTION WIDTH 12.5 % (11.6-17.2); WHITE BLOOD COUNT 9.2 TH/MM3 (4.0-11.0)
[2017-09-16 12:35] LABS: ALBUMIN 3.8 GM/DL (3.4-5.0); BICARBONATE 25.7 MEQ/L (21.0-32.0); CALCIUM 9.4 MG/DL (8.5-10.1); CREATININE 2.05 MG/DL (0.60-1.30)
[2017-09-16 12:36] LABS: PHOSPHORUS 2.8 MG/DL (2.5-4.9)
== END ==
LOC: ELAB 10:50
PROVIDERS: ATTEND Internal Medicine Nephrology
DX: N25.81 Secondary hyperparathyroidism of renal origin (principal); N18.3 Chronic kidney disease, stage 3 (moderate); E55.9 Vitamin D deficiency, unspecified
CPT/HCPCS: 36415; 80069; 82306; 83970; 85025